=== PATIENT | female | born 1970 | race Two or more races ===

== ENCOUNTER 2019-02-04 10:00 | Day surgery (SDC) | payer OTHER | END 2019-02-04 13:40 | disposition home or self-care (01) | LOC: AMB-ENDOS 10:00 | DX: D13.1 Benign neoplasm of stomach (principal); K29.70 Gastritis, unspecified, without bleeding ==

== ENCOUNTER 2020-12-28 06:32 | Day surgery (SDC) | payer OTHER | END 2020-12-28 12:15 | disposition home or self-care (01) | LOC: AMB-ENDOS 06:32 | PROVIDERS: ATTEND Surgery | DX: K62.89 Other specified diseases of anus and rectum (principal); K64.1 Second degree hemorrhoids; Z20.822 Contact with and (suspected) exposure to COVID-19 ==